=== PATIENT | male | born 1965 | race African-American/Black ===

== ENCOUNTER 2018-04-09 22:17 | Emergency (ER) | payer SELFPAY ==
[2018-04-09] MEDS: PSEUDOEPHEDRINE ER 120 MG TABLET.ER. PO (23:30)
[2018-04-09] MEDS: LORazepam 1 MG TABLET PO (23:30)
== END 2018-04-10 00:24 | disposition home or self-care (01) ==
LOC: ER 04-10 00:24
DX: F41.9 Anxiety disorder, unspecified (principal); R09.81 Nasal congestion; R05 Cough; R42 Dizziness and giddiness; R07.89 Other chest pain; Z87.891 Personal history of nicotine dependence; Z88.8 Allergy status to other drugs, medicaments and biological substances
CPT/HCPCS: 71046; 93005; 99284